=== PATIENT | male | born 1975 | race Caucasian/White ===

== ENCOUNTER 2017-04-17 11:52 | Emergency (ER) | payer OTHER ==
[2017-04-17 12:11] LABS: BASOPHIL (%) 0.2 % (0-1); EOSINOPHIL (%) 1.1 % (0-5); EOSINOPHIL COUNT 0.1 K/uL (0-0.3); HEMATOCRIT 45.6 % (38.0-50.0); HEMOGLOBIN 15.4 G/DL (12.5-16.6); IMMATURE GRANULOCYTE (%) 0.3 % (0.0-0.7); LYMPHOCYTE (%) 20.1 % (15-42); LYMPHOCYTE COUNT 2.5 K/uL (1.0-2.8); MCH 31.5 PG (29.0-34.0); MCHC 33.8 G/DL (30.0-36.0); MCV 93.3 FL (86-99); MONOCYTE (%) 5.9 % (3-12); MONOCYTE COUNT 0.7 K/uL (0-0.8); NEUTROPHIL (%) 72.4 % (45-76); NEUTROPHIL COUNT 8.9 K/uL (1.8-6.4); PLATELET COUNT 226 K/uL (156-360); RBC DIS.WIDTH-CV 12.1 % (11.8-14.6); RBC DIS.WIDTH-SD 42.3 % (39-53); RED BLOOD COUNT 4.89 M/uL (4.00-5.50); WHITE BLOOD COUNT 12.3 K/uL (4.1-10.2)
[2017-04-17 12:20] LABS: AMYLASE 47 IU/L (1-118); CHLORIDE 108 mEq/L (99-109); POTASSIUM 4.8 mEq/L (3.7-5.4); SODIUM 140 mEq/L (136-147)
[2017-04-17 12:21] LABS: GLUCOSE 83 mg/dL (70-99)
[2017-04-17 12:24] LABS: SERUM ETHYL ALCOHOL < 10 mg/dL
[2017-04-17 12:25] LABS: CREATININE 0.9 mg/dL (0.6-1.3)
[2017-04-17 12:26] LABS: UREA NITROGEN (BUN) 14 mg/dL (9-23)
[2017-04-17 12:28] LABS: LIPASE 26 U/L (1.0-51.0)
[2017-04-17 12:39] LABS: GFR ESTIMATE (CALCULATED) > 59 mL/min/ (58.99-99999)
[2017-04-17] MEDS ORDERED: PERCOCET 5/31 TABLET PO (13:51)
== END 2017-04-17 15:25 | disposition home or self-care (01) ==
LOC: TRA 11:52
PROVIDERS: Emergency Medicine
PROC: 2W3CX1Z Immobilization of Right Lower Arm using Splint (ICD-10-PCS; principal; 2017-04-17)
DX: S42.191A Fracture of other part of scapula, right shoulder, initial encounter for closed fracture (principal); S52.514A Nondisplaced fracture of right radial styloid process, initial encounter for closed fracture; W13.2XXA Fall from, out of or through roof, initial encounter; Y93.H3 Activity, building and construction; Y99.0 Civilian activity done for income or pay; M51.35 Other intervertebral disc degeneration, thoracolumbar region; F90.9 Attention-deficit hyperactivity disorder, unspecified type
CPT/HCPCS: 70450; 71260; 72125; 72129; 72132; 73030; 73110; 74177; 80048; 81003; 82150; 83690; 85025; 86850; 86900; 86901; 99281; 99285; G0480; J2270